=== PATIENT | female | born 1940 | race Caucasian/White ===

== ENCOUNTER → 2016-12-21 | Day surgery (SDC) | payer OTHER ==
[~2016-12-21] MED LIST: ALBUTEROL17 GM INH; ALBUTEROL2.5 MG/0.5 IH; ALPRAZOLAM ER1 MG PO; ALPRAZOLAM PO; ALPRAZOLAM1 MG PO; AMARYL2 MG PO; AMBIEN PO; AMBIEN10 MG PO; APRISO0.375 GM PO; ASPIRINEC PO; AUGMENTIN875 MG PO; AVALIDE 150-12.1 TAB PO; B-121000 MC1 PO; BENADRYL ALLERG1 TAB PO; BENADRYL ALLERG25 MG PO; BENADRYL25 M1 PO; BENICAR 20 MG PO; BENICAR HCT 20-1 TA1 PO; CALCIUM; CALCIUM 5001 TAB PO; CALCIUM 600 +1 EAC2 PO; CANASA1000 MG/S1 RC; CARAFATE1 G PO; CARAFATE1 GM PO; CELEXA20 M1 PO; COZAAR PO; CRESTOR40 MG PO; DARVOCET-N 1001 TAB PO; DESOXIMETASONE 0.05% TOP; DOXYCYCLINE HY100 M1 PO; ESTRACE1 M1 PO; ESTRADERM0.1 MG PO; ESTRADIOL1 MG PO; FERRO-TIME325 MG PO; FISH OIL 1,0001 CA2 PO; FISH OIL 1,001000 M1 PO; FLAGYL PO; FLEXERIL10 MG PO; FLONASE 0.05% N16 G1; FLONASE16 GM; GABAPENTIN600 MG PO; GLIPIZIDE10 MG PO; GLUCOPHAGE500 M1 PO; GLUCOPHAGE500 MG PO; GLUCOTROL PO; GUAIFENESIN400 MG PO; HORMONE PO; HUMIRA20 MG/0.4 IJ; HUMIRA40 MG/0.1 SQ; HYDROCODON-ACE1 EAC1 PO; HYDROCODONE APA PO; HYDROCODONE-APA1 T58 PO; LASIX PO; LEVOTHYROXINE100 MCG PO; LIPITOR PO; LOSARTAN POTASS50 MG PO; LYRICA50 MG PO; MAALOX MAXIMUM355 ML PO; MEDI-MECLIZINE25 M1 PO; METFORMIN HCL500 M1 PO; METOPROLOL TAR25 MG PO; METRONIDAZOLE PO; MUCINEX DM1 TAB.SR . PO; MYLANTA400 MG PO; NEURONTIN600 MG PO; OMEPRAZOLE40 MG PO; ORAXYL20 MG PO; OXECTA7.5 MG PO; OXYCODON HCL-AP1 TA2 PO; OXYGEN; OXYGEN OD; PANTOPRAZOLE SO40 MG PO; PERCOCET 7.5-31 EACH PO; PERCOCET 7.5/321 TAB PO; PERCOCET7.5 PO; PHENERGAN PO; PHENERGAN25 M1 PO; PHENERGAN25 MG PO; PREDNISONE PO; PREMARIN PO; PREMARIN0.3 MG PO; PREMARIN1.25 MG PO; PREVACID PO; PRILOSEC40 MG PO; PROAIR HFA8.5 GM; PROAIR HFA8.5 GM IH; PROAIR HFA8.5 GM INH; PROMETHAZINE HC25 MG PO; PROTONIX PO; REMICADE IV; SIMVASTATIN40 MG PO; SINGULAIR PO; SPIRIVA18 MCG INH; SPIRIVA18 MCG PO; STERAPRED5 MG/DOSE1 PO; SYMBICORT 160/4.6 G1 IH; SYMBICORT 160/4.6 G1 IN; SYMBICORT 16010.2 GM IH; SYMBICORT INH; SYNTHROID PO; SYNTHROID0.1 MG PO; TALWIN NX TABLE1 TAB PO; TAMIFLU75 M1 PO; TYLENOL EXTRA500 M1 PO; VIBRAMYCIN100 M1 PO; VICODIN 5/500 T1 TAB PO; VITAMIN B12-FO1 EACH PO; VITAMIN D22000 UNIT PO; XANAX 1 MG PO; XANAX1 MG PO
--- NOTE | ~2016-12-21 | OR ---
Unit #: [id number] #: [id number] Patient: SIMBA JIMENEZ [id number] [address] [address] [id number] O MR#: [id number] NAME: SIMBA JIMENEZ ROOM: Date of Procedure: 12/21/2016 Admission Date: 12/21/2016 Surgeon: Kushal Petersen M.D. : 1940 Attending Physician: Kushal Petersen M.D. Primary Care Physician: Matthias Yang M.D. OPERATIVE REPORT PROCEDURE PERFORMED EGD with biopsy. INDICATION Patient with significant epigastric pain, nausea, vomiting, going on for about 5 to 6 weeks. MEDICATIONS Monitored anesthesia. POSTOPERATIVE FINDINGS 1. Small hernia. 2. Mild gastritis, biopsies taken. 3. Normal duodenum and distal duodenum. PLAN Continue PPI symptomatic treatment. DESCRIPTION OF PROCEDURE The patient was explained of the procedure, risks, and benefits along with risks and benefits of anesthesia. She was brought to the endoscopy room. Propofol anesthesia was given. Bite block was placed. The scope was passed down the mouth and esophagus, stomach, duodenum, and distal duodenum. Findings as described. Biopsies taken. Gently, I pulled the scope out of the patient's mouth. She tolerated it well. Dictated by... Prudencio Staples/rashid TD: 12/21/2016 13:15 JOB #: [id number] Unit #: [id number] #: [id number] Patient: SIMBA JIMENEZ OPERATIVE REPORT Page 1 of 1 X Kushal Petersen MD X PROCEDURE OPERATIVE NOTE
== END | disposition home or self-care (01) ==
LOC: COPS 07:36
PROVIDERS: Internal Medicine
PROC: 0DB68ZX Excision of Stomach, Via Natural or Artificial Opening Endoscopic, Diagnostic (ICD-10-PCS; principal; 2016-12-21 09:00)
DX: K29.50 Unspecified chronic gastritis without bleeding (principal); K44.9 Diaphragmatic hernia without obstruction or gangrene; K21.9 Gastro-esophageal reflux disease without esophagitis; E03.9 Hypothyroidism, unspecified; J44.9 Chronic obstructive pulmonary disease, unspecified; Z99.81 Dependence on supplemental oxygen; N39.3 Stress incontinence (female) (male); M19.90 Unspecified osteoarthritis, unspecified site; I49.9 Cardiac arrhythmia, unspecified; E11.9 Type 2 diabetes mellitus without complications; Z79.84 Long term (current) use of oral hypoglycemic drugs; R25.1 Tremor, unspecified; Z79.899 Other long term (current) drug therapy; Z79.891 Long term (current) use of opiate analgesic; Z79.890 Hormone replacement therapy; Z87.01 Personal history of pneumonia (recurrent); Z90.710 Acquired absence of both cervix and uterus; Z90.49 Acquired absence of other specified parts of digestive tract; Z91.018 Allergy to other foods; Z88.8 Allergy status to other drugs, medicaments and biological substances; Z88.2 Allergy status to sulfonamides; Z91.048 Other nonmedicinal substance allergy status; Z88.1 Allergy status to other antibiotic agents
CPT/HCPCS: 82947; 88305; 88312

== ENCOUNTER → 2016-12-30 | Day surgery (SDC) | payer OTHER ==
--- NOTE | ~2016-12-30 | OR ---
Unit #: [id number] #: [id number] Patient: SIMBA JIMENEZ [id number] [address] [place], [place] [address] [id number] O MR#: [id number] NAME: SIMBA JIMENEZ ROOM: Date of Procedure: 12/30/2016 Admission Date: 12/30/2016 Surgeon: John Ng M.D. : 1940 Attending Physician: John Ng M.D. Primary Care Physician: Matthias Yang M.D. OPERATIVE REPORT PREOPERATIVE DIAGNOSES 1. Back pain. 2. Lumbar facet disease. POSTOPERATIVE DIAGNOSES 1. Back pain. 2. Lumbar facet disease. PROCEDURE PERFORMED Lumbar facet injection x2 levels with intravenous sedation and fluoroscopic guidance for needle localization. INDICATIONS FOR PROCEDURE The patient is a 76-year-old female with return of severe left-sided low back pain radiating down to her buttock and hip. It is due to facet disease and spondylosis at the left L3-L4, L4-L5, and L5-S1 levels. Proceeded in the past and did well for over a year with facet injections on the left side. Recent injections a few months ago settled the pain, but the pain returned much quicker than usual. Based on prior response of pathology, symptomatology, and limited treatment options, we are going to proceed with a repeat injection today at the left L3-L4 and L4-L5 levels. DESCRIPTION OF PROCEDURE The patient was placed in a prone position. Standard monitors were applied. 4 mg of Versed were given for sedation and anxiolysis, which were adequate. Vital signs remained stable. Sterile prep and drape then of the lumbar area was performed. The skin to the left of midline overlying the L3-4 and L4-5 facet joints were localized with 1% lidocaine. A 22-gauge Quincke point spinal needle was then advanced at these levels with biplanar fluoroscopic guidance. The needles were advanced down into the edge of the respective facet joints. After confirming proper positioning, a dose of 1 mL of a mixture of 80 mg Depo-Medrol and 0.25% bupivacaine were deposited. The needles were flushed and removed. The patient tolerated the procedure otherwise well and was discharged to the recovery room in stable condition. Dictated by... John Ng M.D. [facility]/rashid Unit #: [id number] #: [id number] Patient: SIMBA JIMENEZ TD: 12/31/2016 03:59 JOB #: [id number] CC: Reyna/kassi Please Delete OPERATIVE REPORT Page 1 of 1 X John Ng MD X PROCEDURE OPERATIVE NOTE
== END | disposition home or self-care (01) ==
LOC: CCSC 07:06
DX: M47.26 Other spondylosis with radiculopathy, lumbar region (principal)
CPT/HCPCS: 82947; J1040; J2250

== ENCOUNTER 2017-02-26 16:35 | Emergency (ER) | payer OTHER ==
--- NOTE | ~2017-02-26 | CT2 ---
[facility] A Service of [facility] & [facility] RADIOLOGY TEXT RESULTS PATIENT: SIMBA JIMENEZ LOCATION: [facility] : 40 UNIT #: [id number] AGE: [address]: Steph Gracia MD SEX: F ORDER DR: [id number] [facility] [address] [place], [place] [address] [id number] E MR#: [id number] Acc #: [id number] NAME: SIMBA JIMENEZ. : 1940 SEX: F STUDY DATE/TIME: 02/26/2017 19:47 UNIT: [facility] ROOM: STUDY DESCRIPTION: CT Abd and Pelv W Cont Attending Physician: Steph Gracia M.D. Ordering Physician: Francisco Dhillon M.D. Primary Care Physician: Matthias Yang M.D. MEDICAL IMAGING REPORT This report is preliminary unless electronic signature is present EXAM CT of abdomen and pelvis with contrast. HISTORY 76-year-old female with abdominal pain, epigastric pain for [address] abdomen and pelvis, 10/05/2015. FINDINGS Axial images performed through the abdomen and pelvis without contrast. Multiplanar reconstructed images were reviewed at a workstation. This CT exam was performed with one or more of the following radiation dose reduction techniques: automatic exposure control, adjustment of mA and/or kV according to patient size, and iterative reconstruction. ABDOMEN: Lung bases demonstrates a small amount of reticular nodular changes in the left lung base, could represent some focal inflammation. No consolidative airspace disease or pneumonia. Liver, spleen unremarkable. The gallbladder absent. Pancreas, kidneys and adrenal glands appear normal. Patient is status post apparent left hemicolectomy. Mild aortic and iliac atherosclerotic changes. PELVIS: Bladder unremarkable. Uterus surgically absent. Osseous structures remarkable for degenerative changes upper lumbar spine. Patient demonstrates a large upper abdominal ventral hernia measuring about 11 x 11.5 cm. This contains the transverse colon and mesenteric fat. No incarceration. Patient does demonstrate borderline splenomegaly and this is unchanged from prior studies. IMPRESSION 1. Small amount of reticular nodular changes in the left lung base may reflect inflammatory disease though no airspace disease or STS. [facility] A Service of [facility] & [facility] / [facility] RADIOLOGY TEXT RESULTS PATIENT: SIMBA JIMENEZ LOCATION: [facility] #: [id number] : 40 UNIT #: [id number] AGE: [address]: Steph Gracia MD SEX: F ORDER DR: consolidation. 2. Patient is post-cholecystectomy. 3. Moderate size upper ventral hernia containing transverse colon and omental fat. No incarceration. 4. Mild splenomegaly unchanged from prior studies. Dictated by... Quintin Cannon M.D. THIS IS AN ELECTRONICALLY VERIFIED REPORT Quintin Cannon M.D. at 02/27/2017 9:16 PM [place] TD: 02/26/2017 23:18 JOB #: [id number] MEDICAL IMAGING REPORT Page 1 of 1 COPY
[2017-02-26 17:44] LABS: BASOPHIL% 0.5 % (0-2.5); EOSINOPHIL# 0.2 X10e3 (0-0.7); EOSINOPHIL% 3.1 % (0.0-7.0); HEMATOCRIT 44.1 % (35.0-45.0); HEMOGLOBIN 14.5 gm/dL (12.0-16.0); LYMPHOCYTE# 1.6 X10e3 (1.0-3.5); LYMPHOCYTE% 24.9 % (17.0-45.0); MEAN CORPUSCULAR HEMOGLOBIN 30.4 PG (28-34); MEAN PLATELET VOLUME 10.7 FL (6.5-11.5); MONOCYTE# 0.6 X10e3 (0-1.0); MONOCYTE% 9.1 % (3.0-12.0); NEUTROPHIL% 62.4 % (40-75); PLATELET COUNT 132 X10e3 (140-420); RED BLOOD COUNT 4.79 X10e (3.90-5.30); RED CELL DISTRIBUTION WIDTH 14.3 % (11.0-15.5); WHITE BLOOD COUNT 6.4 X10e3 (4.0-10.5)
[2017-02-26 17:48] LABS: DIFF IND NO
[2017-02-26 18:13] LABS: ALBUMIN SERUM 3.9 g/dL (3.5-5.0); BILIRUBIN, DIRECT 0.1 mg/dL (0.0-0.2); BILIRUBIN,INDIRECT 0.8 mg/dL (0.0-0.9); BILIRUBIN,TOTAL 0.9 mg/dL (0.2-2.0); BUN/CREATININE RATIO 16.66; CALCIUM SERUM 9.1 mg/dL (8.4-10.2); CREATININE SERUM 0.9 mg/dL (0.6-1.4); GLOM FILT RATE Estimated 62.2 mL/min (>60); POTASSIUM 4.3 mmol/L (3.5-5.1); PROTEIN TOTAL SERUM 7.1 g/dL (6.0-8.3)
[2017-02-26 21:15] LABS: URINE SOURCE CLEAN CATCH
[2017-02-26 21:20] LABS: URINE APPEARANCE CLEAR; URINE BILIRUBIN NEG (NEG); URINE BLOOD NEG (NEG); URINE COLOR YELLOW; URINE GLUCOSE NEG (NEG); URINE KETONE NEG (NEG); URINE LEUKOCYTE ESTERASE NEG (NEG); URINE NITRATE NEG (NEG); URINE PROTEIN NEG (NEG); URINE SPECIFIC GRAVITY 1.029 (1.003-1.035); URINE UROBILINOGEN 0.2 MG/DL (NEG)
[2017-02-26 21:25] LABS: CULTURE INDICATED? NO
== END 2017-02-26 22:15 | disposition home or self-care (01) ==
LOC: CED 16:35
PROVIDERS: Emergency Medicine
DX: R10.32 Left lower quadrant pain (principal); R11.0 Nausea; E11.9 Type 2 diabetes mellitus without complications; I10 Essential (primary) hypertension; Z90.49 Acquired absence of other specified parts of digestive tract; Z88.2 Allergy status to sulfonamides; Z91.018 Allergy to other foods; Z88.8 Allergy status to other drugs, medicaments and biological substances; Z79.899 Other long term (current) drug therapy
CPT/HCPCS: 36415; 74177; 80048; 80076; 81003; 82150; 83690; 85025; 96361; 96374; 96375; 99284; J2270; J2405; Q9967